=== PATIENT | female | born 1945 | race Caucasian/White ===

== ENCOUNTER 2023-06-12 08:19 | Outpatient (OUT) | payer MEDICARE, OTHER, SELFPAY ==
--- NOTE | 2023-06-12 08:39 | MR_ITS ---
The [address] [id number] Patient Name: SHANT CAM MRN: [id number] date: 1945 Sex: F Assigned Patient Location: LAB Current Patient Location: LAB Accession/Order Number: [id number] Exam Date: 06/12/2023 08:55 Report Date: 06/12/2023 11:45 At the request of: FRANCOIS SERRANO Procedure: MR head/brain wo/w con MR head/brain wo/w con, 06/12/2023 8:55 AM EDT INDICATION: Abnormal Findings Blood Chemistry R79.89 COMPARISON: There is no appropriate prior study for comparison. TECHNIQUE: Multiplanar, multisequential MRI images of brain were obtained without and with injection of contrast. FINDINGS: The cerebral sulci as well as ventricular system are enlarged consistent with mild ex vacuo cerebral volume loss. There is no restricted diffusion. Hyperintensities on T2 and FLAIR images in the alfredo radiata and centrum semiovale with sparing of U fibers are nonspecific, statistically most likely consistent with mild microvascular ischemic changes. There is no intracranial mass, mass effect, midline shift, intra or extra-axial fluid collection or large hemorrhage. No abnormal enhancing lesion is noted. Pituitary gland: The pituitary gland is atrophic (empty sella turcica). No lesion of the pituitary gland is noted. The pituitary stalk is in midline. The cavernous sinuses and optic chiasma are unremarkable. Normal flow-void in the intracranial vessels is noted. Retention cyst within the maxillary sinuses are noted. The visualized portions of orbits, mastoid air cells as well as remainder of paranasal sinuses are unremarkable. There is status post bilateral lens replacement. MR/MR head/brain wo/w con IMPRESSION: No acute intracranial process is noted. Empty sella turcica. No definite lesion within the pituitary gland is noted. Electronically authenticated by: FRANCISCO ROTH Date: 06/12/2023 11:45
[2023-06-12 09:08] LABS: Anion Gap 12.8; BUN Creatinine Ratio 15.8; Calcium 10.1 mg/dL (8.5-10.1); Carbon Dioxide 29.1 mmol/L (21.0-32.0); Chloride 99 mmol/L (98-107); Estimated GFR (African America >60 (>=60); Estimated GFR (Non-African Ame >60 (>=60); Glucose 125 mg/dL (74-106); Potassium 3.9 mmol/L (3.5-5.1); Sodium 137 mmol/L (136-145)
[2023-06-12 09:20] LABS: Free T4 0.44 ng/dL (0.76-1.46)
[2023-06-13 04:07] LABS: Luteinizing Hormone(LH) 14.4 mIU/mL (.); Prolactin 13.3 ng/mL (4.8-23.3)
[2023-06-13 05:07] LABS: FSH 18.1 mIU/mL (.)
[2023-06-13 14:09] LABS: ACTH, Plasma 27.3 pg/mL (7.2-63.3)
[2023-06-14 07:08] LABS: IGF-1 112 ng/mL (42-185)
== END 2023-06-12 08:20 | disposition home or self-care (01) ==
LOC: LAB 08:19
PROVIDERS: PCP Family Medicine; Visit Provider Internal Medicine
DX: R79.89 Other specified abnormal findings of blood chemistry (principal)
CPT/HCPCS: 36415; 70553; 80048; 82024; 82533; 83001; 83002; 84146; 84436; 84439; 84443; A9575